=== PATIENT | male | born 1945 | race Hispanic/Latino ===

== ENCOUNTER 2025-03-04 11:42 | Inpatient (IN) | payer MEDICARE ==
[~2025-03-04] VITALS: Ht 177.8 cm; Wt 93.6 kg
--- NOTE | 2025-03-04 12:01 | EKG ---
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
[2025-03-04 12:07] LABS: IMMATURE GRANULOCYTE ABSOLUTE 0.04 K/uL (0-1); NUCLEATED RED BLOOD CELLS 0.0 % (0.0-0.19); PLATELET COUNT (AUTO) 162 K/uL (130-400); RED BLOOD CELL COUNT(AUTO) 4.52 MIL/uL (4.50-6.20); RED CELL DISTRIBUTION WIDTH 14.1 % (11.0-15.5); WHITE BLOOD COUNT (AUTO) 11.0 K/uL (4.8-10.8)
[2025-03-04 12:14] LABS: CREATININE 1.2 mg/dL (0.5-1.3); GLOMERULAR FILTR. RATE CALC 61.0 mL/min (>90); GLUCOSE,RANDOM 135.0 mg/dL (70-105); SODIUM SERUM 137.0 mmol/L (136-145); UREA NITROGEN, BLOOD 17.0 mg/dL (7-18)
--- NOTE | 2025-03-04 12:18 | ERN ---
General Chief Complaint: Syncope Stated Complaint: SYNCOPE Time Seen by MD: 11:48 History of Present Illness Initial Comments 80-year-old male, history of diabetes, hypertension, Hodgkin's lymphoma in remission, presents for syncopal episode. Patient reports he was sitting down. He felt very tired and weak. He yawned a few times. He then felt faint. Witnesses say he had a very brief syncopal episode without a fall. He has been in the hospital visiting another patient. He was taken to the ER, and on arrival here he has pale and diaphoretic, GCS 15, answering all questions appropriately. He improved over the 10 or so minutes that I spoke with the patient. His clinical exam is unremarkable. He denies any chest pains, shortness of breath, recent illness, vomiting, diarrhea, fevers or any other concerning symptoms. He reports that he has never had a syncopal episode. Allergies: Coded Allergies: iodine (Unverified Allergy, Unknown, 03/04/25) Past Medical History Past Medical History: Diabetes-Type II, Hypertension Past Surgical History: Cholecystectomy, Other Surgical History Other: BACK ROS Dictation CONSTITUTIONAL: No chills, no fever, no weakness, no diaphoresis, no malaise. HEAD/FACE: No signs of trauma. EENT: No eye pain, no blurred vision, no tearing, no double vision, no ear pain, no ear discharge, no nose pain, no nasal congestion, no throat pain, no throat swelling, no mouth pain. RESPIRATORY: No cough, no orthopnea, no SOB, no stridor, no wheezing. CARDIOVASCULAR: Syncope. GASTROINTESTINAL/ABDOMINAL: No abdominal pain, no constipation, no diarrhea, no nausea, no vomiting. GENITOURINARY: No abnormal discharge, no dysuria, no frequent urination, no hematuria. No complaints of pain in the genitals. MUSCULOSKELETAL: No back pain, no gout, no joint pain, no joint swelling, no muscle pain, no muscle stiffness, no neck pain. INTEGUMENTARY: No change in color, no change in hair/nails, no dryness, no lesion, no lumps, no rash. NEUROLOGICAL/PSYCH: No anxiety, not depressed, no emotional problem, no headac he, no numbness, no pre-existing deficit, no history of seizures, no tremors, no weakness. HEMATOLOGIC/LYMPHATIC: Not anemic, no history of blood clots, no apparent bleeding, no bruising, glands not swollen. All Systems Negative, Except as Noted. Physical Exam Physical Exam Dictation VITAL SIGNS: Reviewed. GENERAL APPEARANCE: Alert, oriented x3, no acute distress. HEAD AND FACE: Non-traumatic. EYES: PERRL, pink conjunctivas, eyelid no trauma, anterior chamber clear. EARS: Pinnas intact and no signs of trauma or erythema. Ear canals clear and no discharge. TMs no erythema. NOSE: No discharge, no bleeding. OROPHARYNX: Mouth normal, teeth no caries, tongue pink. Pharynx clear, no erythema. Tonsils no exudates, no abscesses noted. Mucous membrane moist. NECK: Supple, non-tender, no thyromegaly, no masses, no JVD, no bruits. BREAST: Deferred. CHEST: No tenderness, no crepitus, no paradoxical movement, no retractions. LUNGS: Clear, well-ventilated, symmetric, no rales, no wheezing, no rhonchi, no stridor, good breath sounds bilaterally. HEART: Regular rate, regular rhythm, no murmur, no gallops. VASCULAR: No peripheral edema. ABDOMEN: Soft, positive bowel sounds, nondistended, no guarding, nontender, no rebound, no masses no hepatomegaly, no splenomegaly, no Liao's sign, no hernias. RECTAL: Deferred. GENITAL: Deferred. NEUROLOGICAL: Normal speech, gross motor function intact, gross sensory function intact. MUSCULOSKELETAL: Neck nontender, full range of motion, back nontender, full range of motion. EXTREMITIES: Nontender, full range of motion. SKIN: Color pink, dry, no turgor, no rash, no lacerations, no abrasions, no contusions. LYMPHATICS: Deferred. Results Laboratory and Microbiology Lab and Micro Result Laboratory Tests Test 03/04/25 11:54 03/04/25 12:00 03/04/25 12:06 Whole Blood Glucose 119 MG/DL (70-110) H Bedside Glucose Comment Notified Nurse White Blood Count 11.0 K/uL (4.8-10.8) H Red Blood Count 4.52 MIL/uL (4.50-6.20) Hemoglobin 13.6 g/dL (14.0-18.0) L Hematocrit 39.6 % (42-54) L Mean Corpuscular Volume 87.6 fL (79-99) Mean Corpuscular Hemoglobin 30.1 pg (27.0-33.0) Mean Corpuscular Hemoglobin Concent 34.3 g/dL (32.0-36.0) Red Cell Distribution Width 14.1 % (11.0-15.5) Platelet Count 162 K/uL (130-400) Mean Platelet Volume 10.9 fL (7.5-10.5) H Immature Granulocyte % (Auto) 0.4 % (0-1) Neutrophils (%) (Auto) 67.1 % (40.0-77.0) Lymphocytes (%) (Auto) 20.1 % (21.0-51.0) L Monocytes (%) (Auto) 7.8 % (3.0-13.0) Eosinophils (%) (Auto) 3.8 % (0.0-8.0) Basophils (%) (Auto) 0.8 % (0.0-5.0) Neutrophils # (Auto) 7.4 K/uL (1.8-7.7) Lymphocytes # (Auto) 2.2 K/uL (1.0-4.8) Monocytes # (Auto) 0.9 K/uL (0.1-1.0) Eosinophils # (Auto) 0.42 K/uL (0.00-0.70) Basophils # (Auto) 0.09 K/uL (0.00-0.20) Absolute Immature Granulocyte (auto 0.04 K/uL (0-1) Nucleated Red Blood Cells 0.0 % (0.0-0.19) D-Dimer Quantitative (PE/DVT) 1129 ng/mL (0-500) *H Sodium Level 137 mmol/L (136-145) Potassium Level 3.8 mmol/L (3.5-5.1) Chloride Level 101 mmol/L (101-111) Carbon Dioxide Level 29 mmol/L (21-32) Blood Urea Nitrogen 17 mg/dL (7-18) Creatinine 1.2 mg/dL (0.5-1.3) Glomerular Filtration Rate Calc 61 mL/min (>90) Random Glucose 135 mg/dL (70-105) H Total Calcium 9.4 mg/dL (8.5-10.1) Total Creatine Kinase 51 U/L (21-232) Troponin I High Sensitivity 14.7 ng/L (4-75) 14 ng/L (4-75) MDM CC: Syncopal episode. Witnessed. Brief. Historian: Patient Comorbidities: Advanced age, diabetes, hypertension, history of Hodgkin's lymphoma in remission Differential diagnosis: Vasovagal syncope, arrhythmia, cardiac disease, embolism, dehydration, other EKG: Sinus rhythm, rate 56, normal axis, good R-wave progression, intervals are stable no STEMI. Independently interpreted by me. Labs: WBC 11 K no shift no bands. Hemoglobin 13.6. D-dimer elevated. Chemistries unremarkable. Troponin stable x2 CXR: Borderline cardiomegaly on the chest x-ray. No obvious focal infiltrates. Treatment in ED: 1 L lactated Ringer's. Due to the elevated D-dimer, I did consider a CT angiogram of the chest. He is unable to have a T to an allergy. We discussed keeping him on the telemetry and pulse ox, and considering a V/Q scan versus a echocardiogram and monitoring. Patient agrees to admission for syncope. ED Course Orders Procedure Category Date Status Time Cbc With Differential LAB 03/04/25 Complete 11:59 Cardiac Panel LAB 03/04/25 Complete 11:59 D-Dimer LAB 03/04/25 Complete 11:59 Type And Screen BBK 03/04/25 Complete 11:59 Chest 1vw RAD 03/04/25 Resulted 11:59 Ct Head/Brain W/O CT 03/04/25 Resulted Contrast 11:59 12 Lead Ekg Tracing- EKG 03/04/25 Complete Technical 11:59 0.9%Nacl 1000ml (Ns PHA 03/04/25 Complete 1000ml) 12:00 Basic Metabolic Panel LAB 03/04/25 Complete 11:59 Lactated Ringers PHA 03/04/25 Complete 1000ml (Lactated 12:00 Troponin I High LAB 03/04/25 Complete Sensitivity 12:55 Current Medications Medications (Trade) Dose Ordered Sig/Dylan Route PRN Reason Start Time Stop Time Status Last Admin Dose Admin Lactated Ringer's 1,000 ml @ 0 mls/hr ONCE ONCE IV 03/04/25 12:00 03/04/25 12:01 DC 03/04/25 12:21 Sodium Chloride 1,000 ml @ 0 mls/hr ONCE ONCE IV 03/04/25 12:00 03/04/25 12:01 DC Vital Signs Date Time Temp Pulse Resp B/P (MAP) Pulse Ox O2 Delivery O2 Flow Rate FiO2 03/04/25 12:32 54 17 109/66 96 Room Air* 0 21 03/04/25 11:43 96.4 21 16 66/41 DX & DISP Disposition: Inpatient Departure Impression: Primary Impression: Syncope Additional Impression: Elevated d-dimer Condition: Stable OZZY MUNSON DO Mar 04, 2025 12:18
[2025-03-04 12:19] LABS: CREATINE KINASE, TOTAL 51.0 U/L (21-232)
[2025-03-04] MEDS: LACTATED RINGERS 1000ML 1,000 ML IV ONE (12:21)
[2025-03-04] MEDS: 0.9%NACL 1000ML 1,000 ML IV ONE (12:22)
--- NOTE | 2025-03-04 13:13 | HMCIMG ---
EXAM: CT Head Without IV contrast. CLINICAL HISTORY: syncope TECHNIQUE: Axial computed tomography images of the head/brain without intravenous contrast. COMPARISON: None provided. FINDINGS: BRAIN: Bilateral periventricular and deep white matter hypodensity is seen, likely small vessel ischemic changes. No acute infarct or hemorrhage is identified. Faye-white matter differentiation is preserved. Generalized cerebral and cerebellar atrophy is noted. VENTRICLES: No hydrocephalus. ORBITS: The orbits are unremarkable. SINUSES AND MASTOIDS: The paranasal sinuses and mastoid air cells are clear. BONES: No fracture. SOFT TISSUES: Unremarkable. IMPRESSION: 1. No acute intracranial findings. 2. Chronic small vessel ischemic changes. 3. Generalized cerebral and cerebellar atrophy. /[place]
--- NOTE | 2025-03-04 13:49 | HMCIMG ---
EXAM: CR Chest, 1 View. CLINICAL HISTORY: SYNCOPE COMPARISON: None provided. FINDINGS: Right IJ central venous catheter projects over the SVC. Mild bibasilar airspace disease may reflect atelectasis. There is no pleural effusion or pneumothorax. There is mild cardiomegaly. Pulmonary vasculature is within normal limits. IMPRESSION: 1. Right IJ central venous catheter projecting over the SVC. 2. Mild bibasilar airspace disease, possibly atelectasis. 3. Mild cardiomegaly. 4. No acute cardiopulmonary findings. /[place]
--- NOTE | 2025-03-04 15:45 | HP ---
[facility] HISTORY AND PHYSICAL Date of Service: Mar 04, 2025 Time of Service: 15:45 HISTORY OF PRESENT ILLNESS: 80-year-old male with past medical history hypertension, hyperlipidemia, history of lymphoma presented to the hospital secondary to syncope. Patient currently was visiting one of his relatives in the hospital. He was sitting down and felt very tired and weak. He yawned a few times and then he was noted to pass out. The episode lasted for a few sec. Patient lost consciousness during the event and was unaware of his surroundings. No seizure-like activity was witnessed by the relatives. The patient denied any tongue bites, urinary incontinence, fecal incontinence. Patient denied any chest pain, shortness of breath, abdominal pain, nausea and vomiting during the event. Denied any upper or lower extremity weakness, paresthesias. Patient has a history of lymphoma and has finished chemotherapy. He is currently not on any treatment. He has been followed by Dr. Mcrae. Additionally has sees a associate creative director in [place]. He is on carvedilol 25 mg b.i.d. and enalapril 20 mg b.i.d. at home. Denied any dysuria, fever, chills, diarrhea, constipation, shortness for breath, cough, lower extremity swelling, shortness of breaths at exertion. He has been having to date at home and was going to see a dentist for tooth extraction. He is currently on amoxicillin at home. Labs were notable for white count of 11.0, hemoglobin was 13.6, platelet count was 162k, sodium was 137, potassium was 3.8, chloride was 101, creatinine is 1.2, glucose was 135 Patient underwent a chest x-ray which shows a chemo port in place. No infiltrates were noted. The patient underwent a CT head which showed no acute intracranial abnormalities. There was chronic small vessel ischemic changes noted REVIEW OF SYSTEMS CONSTITUTIONAL: Denies fevers, chills, or night sweats. No unintentional weight loss reported. NEUROLOGICAL: Denies headache, amaurosis fugax, motor weakness, sensory deficit, vertigo/spinning sensation, gait abnormalities, or tremors. Positive for syncope ENT: No hearing loss, otalgia, otorrhea, rhinitis, rhinorrhea, hoarseness, or sore throat. CARDIOVASCULAR: Denies any exertional angina, dyspnea on exertion, orthopnea, paroxysmal nocturnal dyspnea, palpitations, life-threatening arrhythmias, claudication. PULMONARY: Denies any shortness of breath, cough, phlegm/sputum, hemoptysis, pleuritic chest pain. GASTROINTESTINAL: Denies any type of dysphagia to either liquids or solids. Denies nausea, vomiting, pyrosis, early satiety, abdominal pain, diarrhea, constipation, or changes in stool consistency or caliber. Denies coffee-ground emesis, hematemesis, hematochezia, or melanotic stools. GENITOURINARY: Denies frequency, urgency, nocturia, hematuria or incontinence (Storage/Irritative symptoms.) Low urinary stream, straining to void, urinary intermittency or hesitancy, splitting of the voiding stream, terminal dribbling. ENDOCRINOLOGIC: Denies polyuria, polydipsia, polyphagia or heat/cold intolerances. HEMATOLOGIC: Denies thrombophilia/previous clots, or coagulopathy/bleeding disorders. ONCOLOGIC: Denies personal history of malignancy. DERMATOLOGIC: Denies rashes or pruritus. PSYCHIATRIC: Denies any suicidal or homicidal ideation. Denies hallucinations. PAST MEDICAL HISTORY: Hypertension, hyperlipidemia, history of Hodgkin's lymphoma PAST SURGICAL HISTORY: History of cholecystectomy PAST SOCIAL HISTORY: Denied any smoking, alcohol, drug use FAMILY HISTORY: Denied any pertinent family history Coded Allergies: iodine (Unverified Allergy, Unknown, 03/04/25) PHYSICAL EXAM GENERAL APPEARANCE: The patient is awake, alert, and oriented, in no acute cardiopulmonary distress. NEUROLOGICAL: Cranial nerves II-XII grossly intact. Motor is 5/5 in bilateral upper and lower extremities proximal to distal. No sensory deficits. HEENT: Face is symmetric. Pupils are equal and reactive. Extraocular movements are intact. NECK: Supple. No JVD. No thyromegaly. No submental, submandibular, pre- /postauricular, occipital or supraclavicular lymphadenopathy. CHEST: Normal chest expansion. No Telemetry. LUNGS: Absence of any rales, rhonchi or any wheezing. CARDIOVASCULAR: Regular. S1 and S2 normal. No appreciable rubs, murmurs or gallops. ABDOMEN: Soft, nontender, and nondistended. There is no rebound, voluntary guarding, or rigidity. : Deferred. No Diggs. EXTREMITIES: Non-edematous and not cyanotic. No clubbing. Good capillary refill. SKIN: No skin breakdown. Vital Sign (Last 24 Hours) 03/04/25 15:04 Temp 96.4 Pulse 56 Resp 16 B/P (MAP) 150/74 Pulse Ox 98 O2 Delivery Room Air* O2 Flow Rate 0 FiO2 21 LABS: Laboratory: Test 03/04/25 12:06 03/04/25 12:00 03/04/25 11:54 Range/Units Troponin I High Sensitivity 14 4-75 ng/L White Blood Count 11.0 H 4.8-10.8 K/uL Red Blood Count 4.52 4.50-6.20 MIL/uL Hemoglobin 13.6 L 14.0-18.0 g/dL Hematocrit 39.6 L 42-54 % Mean Corpuscular Volume 87.6 79-99 fL Mean Corpuscular Hemoglobin 30.1 27.0-33.0 pg Mean Corpuscular Hemoglobin Concent 34.3 32.0-36.0 g/dL Red Cell Distribution Width 14.1 11.0-15.5 % Platelet Count 162 130-400 K/uL Mean Platelet Volume 10.9 H 7.5-10.5 fL Immature Granulocyte % (Auto) 0.4 0-1 % Neutrophils (%) (Auto) 67.1 40.0-77.0 % Lymphocytes (%) (Auto) 20.1 L 21.0-51.0 % Monocytes (%) (Auto) 7.8 3.0-13.0 % Eosinophils (%) (Auto) 3.8 0.0-8.0 % Basophils (%) (Auto) 0.8 0.0-5.0 % Neutrophils # (Auto) 7.4 1.8-7.7 K/uL Lymphocytes # (Auto) 2.2 1.0-4.8 K/uL Monocytes # (Auto) 0.9 0.1-1.0 K/uL Eosinophils # (Auto) 0.42 0.00-0.70 K/uL Basophils # (Auto) 0.09 0.00-0.20 K/uL Absolute Immature Granulocyte (auto 0.04 0-1 K/uL Nucleated Red Blood Cells 0.0 0.0-0.19 % D-Dimer Quantitative (PE/DVT) 1129 *H 0-500 ng/mL Sodium Level 137 136-145 mmol/L Potassium Level 3.8 3.5-5.1 mmol/L Chloride Level 101 101-111 mmol/L Carbon Dioxide Level 29 21-32 mmol/L Blood Urea Nitrogen 17 7-18 mg/dL Creatinine 1.2 0.5-1.3 mg/dL Glomerular Filtration Rate Calc 61 >90 mL/min Random Glucose 135 H 70-105 mg/dL Total Calcium 9.4 8.5-10.1 mg/dL Total Creatine Kinase 51 21-232 U/L Whole Blood Glucose 119 H 70-110 MG/DL Bedside Glucose Comment Notified Nurse DIAGNOSTICS / RADIOLOGY: [ ] ASSESSMENT: Syncope POA Mild leukocytosis differential in setting of syncope versus infection Elevated D-dimer Periodontal disease Hypertension Hyperlipidemia History of Hodgkin's lymphoma Dehydration Iodine allergy PLAN: - patient to be admitted to medical-surgical unit with telemetry -in reference to syncope. Patient will be monitored on telemetry to monitor for any arrhythmia. Obtain echocardiogram. Obtain a carotid ultrasound. We will also obtain a Cardiology consultation. -in reference to elevated D-dimer. Patient currently denies any chest pain, shortness of breath, dyspnea on exertion. We will obtain a venous Doppler and we will obtain a V/Q scan since patient has iodine allergy -obtain patient's home medications will be reconciled once available -check orthostatic vital sign. -obtain a blood culture, urine culture. Patient will be started on Rocephin. Closely monitor for any fevers. If febrile we will expand coverage -check a TSH, A1c, procalcitonin, CRP -further orders per hospitalization course. Advanced Care Planning Which of the following were discussed: Hospice care: Yes __ No _x_ Therapeutic options: Yes __ No __ Advance directives: Yes __ No __ Other discussions: Discussed with who?: patient (Patient, family or surrogates) Voluntary nature of this service was explained to the patient? Yes _x_ No __ Amount of time spent: 25 minutes YAMILET De Oliveira MD, MD Mar 04, 2025 15:45
[2025-03-04] MEDS ORDERED: ATOR20TA65 PO (16:02)
[2025-03-04] MEDS ORDERED: METF-444 PO (16:02)
[2025-03-04] MEDS ORDERED: CLOP-31 PO (16:02)
[2025-03-04] MEDS ORDERED: ERGO500093 PO (16:02)
[2025-03-04] MEDS ORDERED: CARV25TA PO (16:02)
[2025-03-04] MEDS ORDERED: ENAL-91 PO (16:02)
[2025-03-04 16:14] LABS: APPEARANCE,URINE CLEAR (CLEAR); GLUCOSE, URINE (UA) NEGATIVE (NEGATIVE); NITRATE,URINE NEGATIVE (NEGATIVE); OCCULT BLOOD,URINE NEGATIVE (NEGATIVE)
[2025-03-04 16:16] LABS: ADD UA MICROSCOPIC YES
[2025-03-04 16:22] LABS: LEUKOCYTE ESTERASE ,URINE 25 Leu/uL (NEGATIVE)
[2025-03-04 17:07] LABS: SARS-CoV-2, RNA, NAAT NEGATIVE SARS CoV-2 (NEGATIVE)
--- NOTE | 2025-03-04 17:13 | HMCIMG ---
EXAM: US for Deep Venous Thrombosis, bilateral Lower Extremity. CLINICAL HISTORY: Leg Pain and Swelling TECHNIQUE: Real-time ultrasound scan of the veins of the bilateral lower extremity with color Doppler flow, spectral waveform analysis and compression. COMPARISON: None provided. FINDINGS: DEEP VEINS: The common femoral, superficial femoral, and popliteal veins are echolucent and compressible. There is normal color Doppler flow throughout. The visualized calf veins appear patent. SOFT TISSUES: No popliteal fossa cyst or other abnormalities. IMPRESSION: 1. No evidence of deep venous thrombosis in the bilateral lower extremities. /[place]
[2025-03-04 17:15] LABS: INFLUENZA TYPE A Negative For Type A (NEGATIVE); INFLUENZA TYPE B Negative For Type B (NEGATIVE)
--- NOTE | 2025-03-04 17:17 | NUR ---
DCP: HOME met with pt and his Ana Rosa Nayak [phone]. Couple here visiting a patient when he "passed out". Prior to admission, pt was independent, driving, uses cane to ambulate, has a walker, bsc, shower chair and CPAP. No HH or HD. Seen at [facility] by Dr Santana Aguirre for medical care and meds. Pt denies yoandy for SNF, wants to [place] at [place]. Addendum: 03/04/25 at 1720 by LINDSEY BOWERS Amended: Links added.
[2025-03-04] MEDS: 0.9%NACL 1000ML 1,000 ML IV SCH (17:36)
--- NOTE | 2025-03-04 17:41 | HMCIMG ---
EXAM: US Duplex Bilateral Carotid and Vertebral Arteries. CLINICAL HISTORY: SYNCOPE TECHNIQUE: Real-time ultrasound scan of the bilateral carotid and vertebral arteries, 2-D renae scale, with color Doppler flow and spectral waveform analysis. COMPARISON: None provided. FINDINGS: RIGHT COMMON CAROTID ARTERY: No occlusion or significant stenosis. RIGHT INTERNAL CAROTID ARTERY: No occlusion or significant stenosis. RIGHT EXTERNAL CAROTID ARTERY: No occlusion or significant stenosis. RIGHT VERTEBRAL ARTERY: Antegrade flow. RIGHT ICA/CCA RATIO: Within normal limits. LEFT COMMON CAROTID ARTERY: No occlusion or significant stenosis. LEFT INTERNAL CAROTID ARTERY: No occlusion or significant stenosis. LEFT EXTERNAL CAROTID ARTERY: No occlusion or significant stenosis. LEFT VERTEBRAL ARTERY: Antegrade flow. LEFT ICA/CCA RATIO: Within normal limits. SOFT TISSUES: No incidental abnormalities. IMPRESSION: 1. No significant stenosis or occlusion in the bilateral carotid or vertebral arteries. /[place]
--- NOTE | 2025-03-04 19:02 | NUR ---
ORTHO STATIC VITALS LAYING HR 54 BP 168/80 STANDING HR 67 BP 110/68 SITTING HR 53 BP 120/[address] VOSS.
[2025-03-04] MEDS: FAMOTIDINE 20MG VIAL IV SCH (21:22)
[2025-03-04] MEDS: LISINOPRIL 20 MG TABLET PO SCH (21:24)
[2025-03-04 22:30] VITALS: O2SAT 98
--- NOTE | 2025-03-04 22:33 | NUR ---
home meds i asked the patient for his home medications. his will bring them in the am to verify that they are correct in our system.
--- NOTE | 2025-03-04 22:41 | CONS ---
CONSULT NOTE: CARDIOLOGY Reason for consult: Syncope HPI/story at presentation: This is a pleasant 80-year-old male with past medical history who presented with a syncopal spell. Patient was visiting a family member in the hospital and was yawning and then subsequently, passed out while sitting. Cardiology was consulted for further evaluation management Subjective: No active cardiac complaints Past medical history: See below Allergies, Meds See chart Review of systems Review of Systems Constitutional: Negative for chills and fever. HENT: Negative for ear discharge and ear pain. Eyes: Negative for photophobia and discharge. Respiratory: Negative for cough, sputum production and stridor. Cardiovascular: Negative for chest pain and palpitations. Gastrointestinal: Negative for diarrhea and vomiting. Genitourinary: Negative for frequency. Musculoskeletal: Negative for myalgias. Skin: Negative for rash. Neurological: Negative for focal weakness and seizures. Endo/Heme/Allergies: Negative for polydipsia. Psychiatric/Behavioral: Negative for hallucinations. Vitals see chart PHYSICAL EXAMINATION GENERAL: The patient is alert and oriented*3 HEENT: Nonicteric sclerae, non traumatic HEART: Regular rate and rhythm with no murmurs LUNGS: Clear to auscultation bilaterally ABDOMEN: No acute issues, non tender GENITAL, RECTAL: deferred SKIN: No rash NEUROLOGIC: NFND EXTREMITIES: No edema ASSESSMENT SYNCOPE Associated with yawning Possible vasovagal syncope Orthostatic vitals were also positive, 02/2025 Echocardiogram pending HODGKIN'S LYMPHOMA HISTORY OF ALLERGY TO IODINE DIABETES, HYPERTENSION CORE MEASURES Not applicable OTHER MEDICAL PROBLEMS Reviewed PLAN 03/04/2025 possible history of syncope, agree with holding carvedilol given orthostatic positive as well, repeat orthostatics and echocardiogram the morning, further recommendations post. Seen and examined 03/04/2025 at around 10 PM. ATTESTATION I was involved substantially in the care of this patient Number and complexity of problems addressed: 1 acute illness with systemic features Amount and or complexity of data Review of prior external note(s) from each unique source: 2+ Ordering of each unique test : 1 Review of the result(s) of each unique test: 2+ Assessment requiring an independent historian(s): No Independent interpretation of test performed by another MD/QHCP/appropriate source (not separately reported) : No Discussion of management or test interpretation with external MD/QHCP/appropriate source (not separately reported) : No Risk status (cardiac, billing related): Moderate DOMINICK LION MD Mar 04, 2025 22:41
--- NOTE | 2025-03-04 23:00 | HMCIMG ---
EXAM: NM Lung Perfusion and Ventilation Scan. CLINICAL HISTORY: Rule out PE. aLLERGY TO IODINE DYE TECHNIQUE: Ventilation images of the lungs were obtained after inhalation of the radiopharmceutical. Then, radiolabeled MAA was administered intravenously and planar images of the lungs were obtained in multiple projections. COMPARISON: None provided. FINDINGS: VENTILATION: No segmental ventilation defect. PERFUSION: No segmental perfusion defect. IMPRESSION: Normal VQ scan based on modified PIOPED criteria. /[place]
[2025-03-05] VITALS (8 sets, daily range): BP systolic 113–179; BP diastolic 65–95; PULSE 48–62; RESP 16–18; TEMP 98–98.4; O2SAT 98–99
--- NOTE | 2025-03-05 03:02 | NUR ---
arrival report received by annie sarkar. patient arrived to room 416 at [address] I let [address] virk know about the consult. He came to see the patient. no new orders given. Plan of care discussed with the patient and he verbalized understanding. patient uses the cpap at home and will have his bring it today as well as his home medications. He is on oxygen 2 liters nasal cannula for now. He is not snoring tonight. He is ambulatory with assistance to the restroom. He has slept about 4 hours tonight. call light within reach, bed alarm on, 2 side rails up. will continue to monitor patient.
--- NOTE | 2025-03-05 03:08 | NUR ---
ortho vitals supine bp 179/84 standing 1 minute 154/95 standing 3 minutes 149/77 patient's heart rate remains in the 50[address] sinus st[address] dr. virk is aware of positive ortho vitals
[2025-03-05 06:42] LABS: CREATININE 0.9 mg/dL (0.5-1.3); GLOMERULAR FILTR. RATE CALC 86.0 mL/min (>90); GLUCOSE,RANDOM 84.0 mg/dL (70-105); SODIUM SERUM 139.0 mmol/L (136-145); UREA NITROGEN, BLOOD 13.0 mg/dL (7-18)
[2025-03-05 06:58] LABS: IMMATURE GRANULOCYTE ABSOLUTE 0.03 K/uL (0-1); NUCLEATED RED BLOOD CELLS 0.0 % (0.0-0.19); PLATELET COUNT (AUTO) 120 K/uL (130-400); RED BLOOD CELL COUNT(AUTO) 4.33 MIL/uL (4.50-6.20); RED CELL DISTRIBUTION WIDTH 13.7 % (11.0-15.5); WHITE BLOOD COUNT (AUTO) 8.9 K/uL (4.8-10.8)
[2025-03-05] MEDS ORDERED: LISINOPRIL 40 MG TABLET PO SCH (09:00)
[2025-03-05 09:26] LABS: % IRON SATURATION 21.3 % (30-44); IRON, SERUM 57.0 mcg/dL (65-175)
[2025-03-05] MEDS: ENOXAPARIN SODIUM 30 MG/0.3 ML SQ SCH (11:28)
--- NOTE | 2025-03-05 11:55 | PN ---
[facility] PROGRESS NOTE Date of Service: Mar 05, 2025 Time of Service: 11:51 SUBJECTIVE: 03/05 patient is seen and examined at bedside, case discussed with the RN, no acute events overnight, patient comfortably in bed, alert oriented x3, blood pressure 155/75, afebrile, saturating normal on room air. The patient remains bradycardic, heart rate of 56. Results of Doppler negative for DVT both lower extremities. V/Q scan normal. Ultrasound carotids, no significant stenosis or occlusion bilateral carotid or vertebral arteries. 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 Echocardiogram to evaluate ejection fraction, we will follow up. REVIEW OF SYSTEMS CONSTITUTIONAL: Denies fevers, chills, or night sweats. No unintentional weight loss reported. NEUROLOGICAL: Denies headache, amaurosis fugax, motor weakness, sensory deficit, vertigo/spinning sensation, gait abnormalities, or tremors. Positive for syncope ENT: No hearing loss, otalgia, otorrhea, rhinitis, rhinorrhea, hoarseness, or sore throat. CARDIOVASCULAR: Denies any exertional angina, dyspnea on exertion, orthopnea, paroxysmal nocturnal dyspnea, palpitations, life-threatening arrhythmias, claudication. PULMONARY: Denies any shortness of breath, cough, phlegm/sputum, hemoptysis, pleuritic chest pain. GASTROINTESTINAL: Denies any type of dysphagia to either liquids or solids. Denies nausea, vomiting, pyrosis, early satiety, abdominal pain, diarrhea, constipation, or changes in stool consistency or caliber. Denies coffee-ground emesis, hematemesis, hematochezia, or melanotic stools. GENITOURINARY: Denies frequency, urgency, nocturia, hematuria or incontinence (Storage/Irritative symptoms.) Low urinary stream, straining to void, urinary intermittency or hesitancy, splitting of the voiding stream, terminal dribbling. ENDOCRINOLOGIC: Denies polyuria, polydipsia, polyphagia or heat/cold intolerances. HEMATOLOGIC: Denies thrombophilia/previous clots, or coagulopathy/bleeding disorders. ONCOLOGIC: Denies personal history of malignancy. DERMATOLOGIC: Denies rashes or pruritus. PSYCHIATRIC: Denies any suicidal or homicidal ideation. Denies hallucinations. PHYSICAL EXAM GENERAL APPEARANCE: The patient is awake, alert, and oriented, in no acute cardiopulmonary distress. NEUROLOGICAL: Cranial nerves II-XII grossly intact. Motor is 5/5 in bilateral upper and lower extremities proximal to distal. No sensory deficits. HEENT: Face is symmetric. Pupils are equal and reactive. Extraocular movements are intact. NECK: Supple. No JVD. No thyromegaly. No submental, submandibular, pre- /postauricular, occipital or supraclavicular lymphadenopathy. CHEST: Normal chest expansion. No Telemetry. LUNGS: Absence of any rales, rhonchi or any wheezing. CARDIOVASCULAR: Regular. S1 and S2 normal. No appreciable rubs, murmurs or gallops. ABDOMEN: Soft, nontender, and nondistended. There is no rebound, voluntary guarding, or rigidity. : Deferred. No Diggs. EXTREMITIES: Non-edematous and not cyanotic. No clubbing. Good capillary refill. SKIN: No skin breakdown. Vital Signs (last 8hr) Date Time Temp Pulse Resp B/P (MAP) Pulse Ox O2 Delivery O2 Flow Rate FiO2 03/05/25 08:00 62 113/65 97 03/05/25 08:00 98.1 56 17 155/75 99 Room Air 03/05/25 08:00 56 136/67 97 03/05/25 04:00 98.1 50 18 165/72 99 Room Air LABS: Laboratory: Test 03/05/25 11:02 03/05/25 06:12 03/04/25 16:20 03/04/25 15:15 Range/Units Whole Blood Glucose 91 70-110 MG/DL White Blood Count 8.9 4.8-10.8 K/uL Red Blood Count 4.33 L 4.50-6.20 MIL/uL Hemoglobin 12.9 L 14.0-18.0 g/dL Hematocrit 37.5 L 42-54 % Mean Corpuscular Volume 86.6 79-99 fL Mean Corpuscular Hemoglobin 29.8 27.0-33.0 pg Mean Corpuscular Hemoglobin Concent 34.4 32.0-36.0 g/dL Red Cell Distribution Width 13.7 11.0-15.5 % Platelet Count 120 #L 130-400 K/uL Mean Platelet Volume 11.1 H 7.5-10.5 fL Immature Granulocyte % (Auto) 0.3 0-1 % Neutrophils (%) (Auto) 70.1 40.0-77.0 % Lymphocytes (%) (Auto) 17.5 L 21.0-51.0 % Monocytes (%) (Auto) 8.2 3.0-13.0 % Eosinophils (%) (Auto) 3.3 0.0-8.0 % Basophils (%) (Auto) 0.6 0.0-5.0 % Neutrophils # (Auto) 6.2 1.8-7.7 K/uL Lymphocytes # (Auto) 1.6 1.0-4.8 K/uL Monocytes # (Auto) 0.7 0.1-1.0 K/uL Eosinophils # (Auto) 0.29 0.00-0.70 K/uL Basophils # (Auto) 0.05 0.00-0.20 K/uL Absolute Immature Granulocyte (auto 0.03 0-1 K/uL Nucleated Red Blood Cells 0.0 0.0-0.19 % Sodium Level 139 136-145 mmol/L Potassium Level 3.5 3.5-5.1 mmol/L Chloride Level 105 101-111 mmol/L Carbon Dioxide Level 29 21-32 mmol/L Blood Urea Nitrogen 13 7-18 mg/dL Creatinine 0.9 0.5-1.3 mg/dL Glomerular Filtration Rate Calc 86 >90 mL/min Random Glucose 84 70-105 mg/dL Total Calcium 8.7 8.5-10.1 mg/dL Magnesium Level 1.70 L 1.80-2.40 mg/dL Iron Level 57 L 65-175 mcg/dL Total Iron Binding Capacity 267 250-450 mcg/dL Percent Iron Saturation 21.3 L 30-44 % Influenza Type A Antigen Negative For Type A NEGATIVE Influenza Type B Antigen Negative For Type B NEGATIVE SARS-CoV-2, RNA, NAAT NEGATIVE SARS CoV-2 NEGATIVE Urine Color LIGHT-YELLOW YELLOW Urine Appearance CLEAR CLEAR Urine pH 7.0 5.0-8.0 Urine Specific Rice 1.010 1.001-1.031 Urine Protein NEGATIVE NEGATIVE mg/dL Urine Glucose (UA) NEGATIVE NEGATIVE mg/dL Urine Ketones NEGATIVE NEGATIVE mg/dL Urine Occult Blood NEGATIVE NEGATIVE Urine Nitrate NEGATIVE NEGATIVE Urine Bilirubin NEGATIVE NEGATIVE mg/dL Urine Urobilinogen 0.2 0.2-1.0 mg/dL Urine Leukocyte Esterase 25 H NEGATIVE Callie/uL Urine RBC 2-5 H 0-1 /HPF Urine WBC 2-5 H 0-1 /HPF Urine Bacteria RARE None Seen /HPF Test 03/04/25 12:06 03/04/25 12:00 03/04/25 11:54 Range/Units Troponin I High Sensitivity 14 4-75 ng/L D-Dimer Quantitative (PE/DVT) 1129 *H 0-500 ng/mL Hemoglobin A1c 5.3 4.0-6.0 % Estimated Average Glucose (eAG) 105 70-126 mg/dL Total Creatine Kinase 51 21-232 U/L C-Reactive Protein, Quantitative 2.40 0.5-3.0 mg/L Procalcitonin < 0.05 L 0.05-0.5 ng/mL Thyroid Stimulating Hormone (TSH) 3.62 0.36-3.74 uIU/mL Bedside Glucose Comment Notified Nurse Current Medications Medications (Trade) Dose Ordered Sig/Dylan Route PRN Reason Start Time Stop Time Status Last Admin Dose Admin Acetaminophen (TYLenol 500MG TAB) 500 mg Q6H PRN PO MILD PAIN (1-3) 03/04/25 16:00 04/03/25 15:59 Atorvastatin Calcium (LIPItor 20MG) 20 mg HS PO 03/04/25 21:00 04/03/25 20:59 03/04/25 21:22 20 MG Carvedilol (Coreg 12.5MG) 12.5 mg BID PO 03/04/25 21:00 03/04/25 19:17 DC Ceftriaxone Sodium (ROCEphine 1G INJ) 1 gm Q24H IVPB 03/04/25 16:00 03/14/25 15:59 03/04/25 17:36 1 GM Clopidogrel Bisulfate (plaVIX 75MG) 75 mg DAILY PO 03/05/25 09:00 04/04/25 08:59 03/05/25 11:28 75 MG Enoxaparin Sodium (Lovenox) 30 mg DAILY SQ 03/05/25 09:00 04/04/25 08:59 03/05/25 11:28 30 MG Famotidine (Pepcid 20mg Vial) 20 mg BID IV 03/04/25 21:00 04/03/25 20:59 03/05/25 11:30 20 MG Lisinopril (Prinivil 20mg) 20 mg BID PO 03/04/25 21:00 04/03/25 20:59 03/05/25 11:28 20 MG Lisinopril (Prinivil 40mg) 40 mg DAILY PO 03/05/25 09:00 03/04/25 18:56 DC Sodium Chloride 1,000 ml @ 75 mls/hr [id number] IV 03/04/25 16:00 04/03/25 15:59 03/05/25 06:48 75 MLS/HR DIAGNOSTICS / RADIOLOGY: [ ] ASSESSMENT: Syncope POA Mild leukocytosis differential in setting of syncope versus infection Elevated D-dimer Periodontal disease Hypertension Hyperlipidemia History of Hodgkin's lymphoma Dehydration Iodine allergy PLAN: - patient remains admitted to the medical floor. -in reference to syncope. Patient will be monitored on telemetry to monitor for any arrhythmia. Obtain echocardiogram. Cardiology input noted and appreciated. Ultrasound carotids unremarkable. -in reference to elevated D-dimer. Patient currently denies any chest pain, shortness of breath, dyspnea on exertion. Extremities negative for DVT, V/Q scan no evidence of PE. -home medications reviewed and reconciled. -continue to check orthostatic vital sign. -follow results of septic workup, empiric Rocephin 1 g IV daily. -TSH, and hemoglobin A1c unremarkable. -further orders per hospitalization course. -follow a.m. labs Plan of action discussed, all questions answered, agreed and understood the information provided. MAGALIS CHACON MD Mar 05, 2025 11:55
[2025-03-05] MEDS: MAGNESIUM 2GM PREMIX 50ML 50 ML IV SCH (15:29)
[2025-03-05] MEDS: PoTASSium chloRIDE 20MEQ ER 20 MEQ ERTAB PO ONE ×2 (15:30→15:45)
--- NOTE | 2025-03-05 19:03 | HMCSR ---
APPROVED REPORT EXAM: Two-dimensional and M-mode echocardiogram with Doppler and color Doppler. INDICATION ICD: Syncope R55 2D Dimensions RVDd3.9 cmLVEF(%)47.9 (>50%)LA ESV INDEX (BP)36.16 mL/m2 IVSd1.3 (0.7-1.1cm)FS(%)24 % LVDd4.9 (3.8-5.6cm)LA (2D)3.9 (1.6-4.0cm) PWd0.9 (0.7-1.1cm)Ao Root(2D)3.2 (2.0-3.7cm) IVSs1.9 cmLVOT diam2.8 (1.8-2.4cm) LVDs3.7 (2.5-4.0cm) PWs1.5 cm Deformation Strain Apical 4-12.7 % Apical 2-17.1 % Apical 3-19.0 % Global Strain-16.2 % Aortic Valve AoV Vmax1.6 m/Nancy Peak GR9.6 mmHgLVOT Vmax0.7 m/s AoV VTI0.4 mAo Mean GR5.2 mmHgLVOT VTI0.19 m RAMBO (VMAX)2.83 cm2AVA (VTI) 3.2 cm2 Mitral Valve MV E Vmax85.1 cm/sDECEL Yoav871 ms MV A Vmax91.5 cm/sP 1/2 T63 ms E/A ratio0.9MVA (PHT)3.5 cm2 TDI E/E' Rgkysj45.3E/E' Hcaxwpy20.5 Medial E' Peak V3.36 cm/sLateral E' Peak V4.61 cm/s Pulmonary Valve PV Vmax0.8 m/sPV VTI0.18 mPV Mean GR1.3 mmHg PV Peak GR2.6 mmHgPI End Sidra. Hussain 58.3 cm/s Tricuspid Valve RAP (EST) 8 mmHgRVSP8.0 mmHg Left Ventricle The left ventricle is normal size. GLS -16.0% Moderate concentric left ventricular hypertrophy. LVEF is 45-50%. Grade 1 diastolic dysfunction Right Ventricle The right ventricle is normal size. The right ventricular systolic function is normal. Atria The left atrium is mildly dilated. The right atrium size is normal. 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 No aortic regurgit ation is present. There is no aortic valvular stenosis. Mitral Valve The mitral valve is normal in structure. There is trace of mitral valve regurgitation noted. There is no mitral valve stenosis. Tricuspid Valve The tricuspid valve is normal in structure. There is no tricuspid valve regurgitation noted. Pulmonic Valve The pulmonary valve is normal in structure. There is trace of pulmonic valvular regurgitation. Great Vessels The aortic root is normal in size. IVC is not well visualized. Pericardium There is no pericardial effusion. Other Information Quality : Technically difficult study dut to body habitus Conclusion LVEF is 45-50%. Grade 1 diastolic dysfunction Moderate concentric left ventricular hypertrophy. The left ventricle is normal size. GLS -16.0% The left atrium is mildly dilated. The right atrium size is normal. 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 There is no pericardial effusion. Normal pulmonary pressures Study quality was adequate
--- NOTE | 2025-03-05 21:36 | PN ---
CARDIOLOGY Reason for consult: Syncope HPI/story at presentation: This is a pleasant 80-year-old male with past medical history who presented with a syncopal spell. Patient was visiting a family member in the hospital and was yawning and then subsequently, passed out while sitting. Cardiology was consulted for further evaluation management Subjective: No active cardiac complaints Past medical history: See below Allergies, Meds See chart Review of systems Review of Systems Constitutional: Negative for chills and fever. HENT: Negative for ear discharge and ear pain. Eyes: Negative for photophobia and discharge. Respiratory: Negative for cough, sputum production and stridor. Cardiovascular: Negative for chest pain and palpitations. Gastrointestinal: Negative for diarrhea and vomiting. Genitourinary: Negative for frequency. Musculoskeletal: Negative for myalgias. Skin: Negative for rash. Neurological: Negative for focal weakness and seizures. Endo/Heme/Allergies: Negative for polydipsia. Psychiatric/Behavioral: Negative for hallucinations. Vitals see chart PHYSICAL EXAMINATION GENERAL: The patient is alert and oriented*3 HEENT: Nonicteric sclerae, non traumatic HEART: Regular rate and rhythm with no murmurs LUNGS: Clear to auscultation bilaterally ABDOMEN: No acute issues, non tender GENITAL, RECTAL: deferred SKIN: No rash NEUROLOGIC: NFND EXTREMITIES: No edema ASSESSMENT SYNCOPE Associated with yawning /Possible vasovagal syncope/ Orthostatic vitals were also positive, 02/2025 Echocardiogram pending HODGKIN'S LYMPHOMA HISTORY OF ALLERGY TO IODINE DIABETES, HYPERTENSION CORE MEASURES Not applicable OTHER MEDICAL PROBLEMS Reviewed PLAN 03/04/2025 possible history of syncope, agree with holding carvedilol given orthostatic positive as well, repeat orthostatics and echocardiogram the morning, further recommendations post. Seen and examined 03/04/2025 at around 10 PM. 03/05/2025 Echocardiogram with normal function, normal valvular gradients, however, possible right atrial mass of undetermined significance present. Will need a JOSS to further evaluate, patient willing to get this done tomorrow. Continues have issues with orthostatic vitals with drop in blood pressure. May consider IV fluids to help with this, EF is normal. Repeat orthostatics in the morning. Seen and examined [phone] at around 8 PM. ATTESTATION I was involved substantially in the care of this patient Number and complexity of problems addressed: 1 acute illness with systemic features Amount and or complexity of data Review of prior external note(s) from each unique source: 2+ Ordering of each unique test : 1 Review of the result(s) of each unique test: 2+ Assessment requiring an independent historian(s): No Independent interpretation of test performed by another MD/QHCP/appropriate source (not separately reported) : No Discussion of management or test interpretation with external MD/QHCP/appropriate source (not separately reported) : No Risk status (cardiac, billing related): Moderate Vitals/Labs Vital Signs Date Time Temp Pulse Resp B/P (MAP) Pulse Ox O2 Delivery O2 Flow Rate FiO2 03/05/25 20:00 98.1 48 18 128/67 97 Room Air 03/05/25 11:30 0 21 Laboratory Tests 03/05/25 06:12 Medications Current Medications Sodium Chloride 1,000 ml @ 0 mls/hr ONCE ONCE IV; Start 03/04/25 at 12:00; Stop 03/04/25 at 12:01; Status DC Lactated Ringer's 1,000 ml @ 0 mls/hr ONCE ONCE IV Last administered on 03/04/25at 12:21; Start 03/04/25 at 12:00; Stop 03/04/25 at 12:01; Status DC Famotidine 20 mg BID IV Last administered on 03/05/25at 20:02; Start 03/04/25 at 21:00; Stop 04/03/25 at 20:59 Acetaminophen 500 mg Q6H PRN PO; Start 03/04/25 at 16:00; Stop 04/03/25 at 15:59 Ceftriaxone Sodium 1 gm Q24H IVPB Last administered on 03/05/25at 17:46; Start 03/04/25 at 16:00; Stop 03/14/25 at 15:59 Sodium Chloride 1,000 ml @ 75 mls/hr [id number] IV Last administered on 03/05/25at 20:03; Start 03/04/25 at 16:00; Stop 04/03/25 at 15:59 Atorvastatin Calcium 20 mg HS PO Last administered on 03/05/25at 20:02; Start 03/04/25 at 21:00; Stop 04/03/25 at 20:59 Clopidogrel Bisulfate 75 mg DAILY PO Last administered on 03/05/25at 11:28; Start 03/05/25 at 09:00; Stop 04/04/25 at 08:59 Lisinopril 40 mg DAILY PO; Start 03/05/25 at 09:00; Stop 03/04/25 at 18:56; Status DC Enoxaparin Sodium 30 mg DAILY SQ Last administered on 03/05/25at 11:28; Start 03/05/25 at 09:00; Stop 04/04/25 at 08:59 Carvedilol 12.5 mg BID PO; Start 03/04/25 at 21:00; Stop 03/04/25 at 19:17; Status DC Lisinopril 20 mg BID PO Last administered on 03/05/25at 20:02; Start 03/04/25 at 21:00; Stop 04/03/25 at 20:59 Potassium Chloride 40 meq ONCE ONCE PO Last administered on 03/05/25at 15:30; Start 03/05/25 at 09:30; Stop 03/05/25 at 09:31; Status DC Magnesium Sulfate 50 ml @ 0 mls/hr PROTOCOL IV Last administered on 03/05/25at 15:29; Start 03/05/25 at 12:30; Stop 04/04/25 at 12:29 Potassium Chloride 40 meq ONCE ONCE PO; Start 03/05/25 at 15:30; Stop 03/05/25 at 15:31; Status DC DOMINICK LION MD Mar 05, 2025 21:35
[2025-03-06] VITALS (8 sets, daily range): BP systolic 100–165; BP diastolic 66–91; PULSE 50–80; RESP 17–18; TEMP 97.5–98.2; O2SAT 97
--- NOTE | 2025-03-06 08:00 | NUR ---
MEDICATIONS NOT GIVEN LOVENOX AND PLAVIX HELD. PATIENT PENDING JOSS WITH .
--- NOTE | 2025-03-06 08:50 | NUR ---
MEDICATION FOR JOSS CLARIFICATION SPOKE WITH DR. GROSS REGARDING MEDICATIONS FOR JOSS. PER MD ORDER PULL 4 OF VERSED, 100 FENTANYL AND LIDO SWISH. TO BE GIVEN ONLY DURING PROCEDURE. ORDERS PLACED.
--- NOTE | 2025-03-06 11:35 | PN ---
[facility] PROGRESS NOTE Date of Service: Mar 06, 2025 Time of Service: 11:33 SUBJECTIVE: 03/05 patient is seen and examined at bedside, case discussed with the RN, no acute events overnight, patient comfortably in bed, alert oriented x3, blood pressure 155/75, afebrile, saturating normal on room air. The patient remains bradycardic, heart rate of 56. Results of Doppler negative for DVT both lower extremities. V/Q scan normal. Ultrasound carotids, no significant stenosis or occlusion bilateral carotid or vertebral arteries. Patient already evaluated by dry box operator, agreed on holding Coreg. Echocardiogram to evaluate ejection fraction, we will follow up. 03/06 patient is seen and examined at bedside, case discussed with the RN, no acute events overnight, patient comfortably in bed, alert oriented x3, remains hemodynamically stable. Echocardiogram done 03/05/2025, LVEF 45/50%, grade 1 diastolic dysfunction, moderate concentric left ventricular hypertrophy, possible right atrial mass, maybe atypical of taking valve, prosthetic aortic valve present. Patient is scheduled for JOSS today by dry box operator, we will continue to follow up. REVIEW OF SYSTEMS CONSTITUTIONAL: Denies fevers, chills, or night sweats. No unintentional weight loss reported. NEUROLOGICAL: Denies headache, amaurosis fugax, motor weakness, sensory defici t, vertigo/spinning sensation, gait abnormalities, or tremors. Positive for syncope ENT: No hearing loss, otalgia, otorrhea, rhinitis, rhinorrhea, hoarseness, or sore throat. CARDIOVASCULAR: Denies any exertional angina, dyspnea on exertion, orthopnea, paroxysmal nocturnal dyspnea, palpitations, life-threatening arrhythmias, cla udication. PULMONARY: Denies any shortness of breath, cough, phlegm/sputum, hemoptysis, pleuritic chest pain. GASTROINTESTINAL: Denies any type of dysphagia to either liquids or solids. Denies nausea, vomiting, pyrosis, early satiety, abdominal pain, diarrhea, constipation, or changes in stool consistency or caliber. Denies coffee-ground emesis, hematemesis, hematochezia, or melanotic stools. GENITOURINARY: Denies frequency, urgency, nocturia, hematuria or incontinence (Storage/Irritative symptoms.) Low urinary stream, straining to void, urinary intermittency or hesitancy, splitting of the voiding stream, terminal dribbling. ENDOCRINOLOGIC: Denies polyuria, polydipsia, polyphagia or heat/cold intolerances. HEMATOLOGIC: Denies thrombophilia/previous clots, or coagulopathy/bleeding disorders. ONCOLOGIC: Denies personal history of malignancy. DERMATOLOGIC: Denies rashes or pruritus. PSYCHIATRIC: Denies any suicidal or homicidal ideation. Denies hallucinations. PHYSICAL EXAM GENERAL APPEARANCE: The patient is awake, alert, and oriented, in no acute cardiopulmonary distress. NEUROLOGICAL: Cranial nerves II-XII grossly intact. Motor is 5/5 in bilateral upper and lower extremities proximal to distal. No sensory deficits. HEENT: Face is symmetric. Pupils are equal and reactive. Extraocular movements are intact. NECK: Supple. No JVD. No thyromegaly. No submental, submandibular, pre- /postauricular, occipital or supraclavicular lymphadenopathy. CHEST: Normal chest expansion. No Telemetry. LUNGS: Absence of any rales, rhonchi or any wheezing. CARDIOVASCULAR: Regular. S1 and S2 normal. No appreciable rubs, murmurs or gallops. ABDOMEN: Soft, nontender, and nondistended. There is no rebound, voluntary guarding, or rigidity. : Deferred. No Diggs. EXTREMITIES: Non-edematous and not cyanotic. No clubbing. Good capillary refill. SKIN: No skin breakdown. Vital Signs (last 8hr) Date Time Temp Pulse Resp B/P (MAP) Pulse Ox O2 Delivery O2 Flow Rate FiO2 03/06/25 08:00 98.2 50 18 148/73 97 Room Air 03/06/25 05:30 54 18 144/78 100/71 119/79 03/06/25 03:50 97.5 55 18 140/77 96 Room Air LABS: Laboratory: Test 03/06/25 10:53 03/05/25 21:16 03/05/25 06:12 03/04/25 16:20 Range/Units Whole Blood Glucose 136 H 70-110 MG/DL Stool Occult Blood NEGATIVE NEGATIVE White Blood Count 8.9 4.8-10.8 K/uL Red Blood Count 4.33 L 4.50-6.20 MIL/uL Hemoglobin 12.9 L 14.0-18.0 g/dL Hematocrit 37.5 L 42-54 % Mean Corpuscular Volume 86.6 79-99 fL Mean Corpuscular Hemoglobin 29.8 27.0-33.0 pg Mean Corpuscular Hemoglobin Concent 34.4 32.0-36.0 g/dL Red Cell Distribution Width 13.7 11.0-15.5 % Platelet Count 120 #L 130-400 K/uL Mean Platelet Volume 11.1 H 7.5-10.5 fL Immature Granulocyte % (Auto) 0.3 0-1 % Neutrophils (%) (Auto) 70.1 40.0-77.0 % Lymphocytes (%) (Auto) 17.5 L 21.0-51.0 % Monocytes (%) (Auto) 8.2 3.0-13.0 % Eosinophils (%) (Auto) 3.3 0.0-8.0 % Basophils (%) (Auto) 0.6 0.0-5.0 % Neutrophils # (Auto) 6.2 1.8-7.7 K/uL Lymphocytes # (Auto) 1.6 1.0-4.8 K/uL Monocytes # (Auto) 0.7 0.1-1.0 K/uL Eosinophils # (Auto) 0.29 0.00-0.70 K/uL Basophils # (Auto) 0.05 0.00-0.20 K/uL Absolute Immature Granulocyte (auto 0.03 0-1 K/uL Nucleated Red Blood Cells 0.0 0.0-0.19 % Sodium Level 139 136-145 mmol/L Potassium Level 3.5 3.5-5.1 mmol/L Chloride Level 105 101-111 mmol/L Carbon Dioxide Level 29 21-32 mmol/L Blood Urea Nitrogen 13 7-18 mg/dL Creatinine 0.9 0.5-1.3 mg/dL Glomerular Filtration Rate Calc 86 >90 mL/min Random Glucose 84 70-105 mg/dL Total Calcium 8.7 8.5-10.1 mg/dL Magnesium Level 1.70 L 1.80-2.40 mg/dL Iron Level 57 L 65-175 mcg/dL Total Iron Binding Capacity 267 250-450 mcg/dL Percent Iron Saturation 21.3 L 30-44 % Influenza Type A Antigen Negative For Type A NEGATIVE Influenza Type B Antigen Negative For Type B NEGATIVE SARS-CoV-2, RNA, NAAT NEGATIVE SARS CoV-2 NEGATIVE Test 03/04/25 15:15 03/04/25 12:06 03/04/25 12:00 03/04/25 11:54 Range/Units Urine Color LIGHT-YELLOW YELLOW Urine Appearance CLEAR CLEAR Urine pH 7.0 5.0-8.0 Urine Specific Levan 1.010 1.001-1.031 Urine Protein NEGATIVE NEGATIVE mg/dL Urine Glucose (UA) NEGATIVE NEGATIVE mg/dL Urine Ketones NEGATIVE NEGATIVE mg/dL Urine Occult Blood NEGATIVE NEGATIVE Urine Nitrate NEGATIVE NEGATIVE Urine Bilirubin NEGATIVE NEGATIVE mg/dL Urine Urobilinogen 0.2 0.2-1.0 mg/dL Urine Leukocyte Esterase 25 H NEGATIVE Callie/uL Urine RBC 2-5 H 0-1 /HPF Urine WBC 2-5 H 0-1 /HPF Urine Bacteria RARE None Seen /HPF Troponin I High Sensitivity 14 4-75 ng/L D-Dimer Quantitative (PE/DVT) 1129 *H 0-500 ng/mL Hemoglobin A1c 5.3 4.0-6.0 % Estimated Average Glucose (eAG) 105 70-126 mg/dL Total Creatine Kinase 51 21-232 U/L C-Reactive Protein, Quantitative 2.40 0.5-3.0 mg/L Procalcitonin < 0.05 L 0.05-0.5 ng/mL Thyroid Stimulating Hormone (TSH) 3.62 0.36-3.74 uIU/mL Bedside Glucose Comment Notified Nurse Current Medications Medications (Trade) Dose Ordered Sig/Dylan Route PRN Reason Start Time Stop Time Status Last Admin Dose Admin Acetaminophen (TYLenol 500MG TAB) 500 mg Q6H PRN PO MILD PAIN (1-3) 03/04/25 16:00 04/03/25 15:59 Atorvastatin Calcium (LIPItor 20MG) 20 mg HS PO 03/04/25 21:00 04/03/25 20:59 03/05/25 20:02 20 MG Carvedilol (Coreg 12.5MG) 12.5 mg BID PO 03/04/25 21:00 03/04/25 19:17 DC Ceftriaxone Sodium (ROCEphine 1G INJ) 1 gm Q24H IVPB 03/04/25 16:00 03/14/25 15:59 03/05/25 17:46 1 GM Clopidogrel Bisulfate (plaVIX 75MG) 75 mg DAILY PO 03/05/25 09:00 04/04/25 08:59 03/05/25 11:28 75 MG Enoxaparin Sodium (Lovenox) 30 mg DAILY SQ 03/05/25 09:00 04/04/25 08:59 03/05/25 11:28 30 MG Famotidine (Pepcid 20mg Vial) 20 mg BID IV 03/04/25 21:00 04/03/25 20:59 03/06/25 09:51 20 MG Fentanyl Citrate (FENTanyl CITRate PF 50 MCG/ 1 ML 2ML VIAL) 100 mcg ONCE PRN IVP DURING JOSS 03/06/25 09:00 Lidocaine HCl (Lidocaine HCl 2% Viscous) 15 ml ONCE PRN PO DURING JOSS 03/06/25 09:00 Lisinopril (Prinivil 20mg) 20 mg BID PO 03/04/25 21:00 04/03/25 20:59 03/06/25 09:53 20 MG Lisinopril (Prinivil 40mg) 40 mg DAILY PO 03/05/25 09:00 03/04/25 18:56 DC Magnesium Sulfate 50 ml @ 0 mls/hr PROTOCOL IV 03/05/25 12:30 04/04/25 12:29 03/05/25 15:29 25 MLS/HR Midazolam HCl (Versed) 4 mg ONCE PRN IVP DURING JOSS 03/06/25 09:00 Sodium Chloride 1,000 ml @ 75 mls/hr [id number] IV 03/04/25 16:00 04/03/25 15:59 03/05/25 20:03 75 MLS/HR DIAGNOSTICS / RADIOLOGY: [ ] ASSESSMENT: Syncope POA Mild leukocytosis differential in setting of syncope versus infection Elevated D-dimer Periodontal disease Hypertension Hyperlipidemia History of Hodgkin's lymphoma Dehydration Iodine allergy PLAN: - patient remains admitted to the medical floor. -in reference to syncope. Patient will be monitored on telemetry to monitor for any arrhythmia. Cardiology input noted and appreciated. Plan for JOSS today. -in reference to elevated D-dimer. Patient currently denies any chest pain, shortness of breath, dyspnea on exertion. Doppler of the lower Extremities negative for DVT, V/Q scan no evidence of PE. -home medications reviewed and reconciled. -continue to check orthostatic vital sign. -afebrile, septic workup unremarkable, discontinue IV antibiotics. -TSH, and hemoglobin A1c unremarkable. -further orders per hospitalization course. -follow a.m. labs Plan of action discussed, all questions answered, agreed and understood the information provided. MAGALIS CHACON MD Mar 06, 2025 11:35
--- NOTE | 2025-03-06 13:11 | PN ---
CARDIOLOGY Reason for consult: Syncope HPI/story at presentation: This is a pleasant 80-year-old male with past medical history who presented with a syncopal spell. Patient was visiting a family member in the hospital and was yawning and then subsequently, passed out while sitting. Cardiology was consulted for further evaluation management Subjective: No active cardiac complaints Past medical history: See below Allergies, Meds See chart Review of systems Review of Systems Constitutional: Negative for chills and fever. HENT: Negative for ear discharge and ear pain. Eyes: Negative for photophobia and discharge. Respiratory: Negative for cough, sputum production and stridor. Cardiovascular: Negative for chest pain and palpitations. Gastrointestinal: Negative for diarrhea and vomiting. Genitourinary: Negative for frequency. Musculoskeletal: Negative for myalgias. Skin: Negative for rash. Neurological: Negative for focal weakness and seizures. Endo/Heme/Allergies: Negative for polydipsia. Psychiatric/Behavioral: Negative for hallucinations. Vitals see chart PHYSICAL EXAMINATION GENERAL: The patient is alert and oriented*3 HEENT: Nonicteric sclerae, non traumatic HEART: Regular rate and rhythm with no murmurs LUNGS: Clear to auscultation bilaterally ABDOMEN: No acute issues, non tender GENITAL, RECTAL: deferred SKIN: No rash NEUROLOGIC: NFND EXTREMITIES: No edema ASSESSMENT SYNCOPE Associated with yawning /Possible vasovagal syncope/ Orthostatic vitals were also positive, 02/2025 Echocardiogram pending HODGKIN'S LYMPHOMA HISTORY OF ALLERGY TO IODINE DIABETES, HYPERTENSION CORE MEASURES Not applicable OTHER MEDICAL PROBLEMS Reviewed PLAN 03/04/2025 possible history of syncope, agree with holding carvedilol given orthostatic positive as well, repeat orthostatics and echocardiogram the morning, further recommendations post. Seen and examined 03/04/2025 at around 10 PM. 03/05/2025 Echocardiogram with normal function, normal valvular gradients, however, possible right atrial mass of undetermined significance present. Will need a JOSS to further evaluate, patient willing to get this done tomorrow. Continues have issues with orthostatic vitals with drop in blood pressure. May consider IV fluids to help with this, EF is normal. Repeat orthostatics in the morning. Seen and examined [phone] at around 8 PM. JOSS completed today without any significant normalities except for a very calcified and enlarged station valve. Can likely discharge home if orthostatics remain negative. Seen and examined 03/06/2025 at around 1300. ATTESTATION I was involved substantially in the care of this patient Number and complexity of problems addressed: 1 acute illness with systemic features Amount and or complexity of data Review of prior external note(s) from each unique source: 2+ Ordering of each unique test : 1 Review of the result(s) of each unique test: 2+ Assessment requiring an independent historian(s): No Independent interpretation of test performed by another MD/QHCP/appropriate source (not separately reported) : No Discussion of management or test interpretation with external MD/QHCP/appropriate source (not separately reported) : No Risk status (cardiac, billing related): Moderate Vitals/Labs Vital Signs Date Time Temp Pulse Resp B/P (MAP) Pulse Ox O2 Delivery O2 Flow Rate FiO2 03/06/25 12:00 98.1 55 18 149/78 94 Room Air 03/05/25 20:05 0 21 Medications Current Medications Sodium Chloride 1,000 ml @ 0 mls/hr ONCE ONCE IV; Start 03/04/25 at 12:00; Stop 03/04/25 at 12:01; Status DC Lactated Ringer's 1,000 ml @ 0 mls/hr ONCE ONCE IV Last administered on 03/04/25at 12:21; Start 03/04/25 at 12:00; Stop 03/04/25 at 12:01; Status DC Famotidine 20 mg BID IV Last administered on 03/06/25at 09:51; Start 03/04/25 at 21:00; Stop 04/03/25 at 20:59 Acetaminophen 500 mg Q6H PRN PO; Start 03/04/25 at 16:00; Stop 04/03/25 at 15:59 Ceftriaxone Sodium 1 gm Q24H IVPB Last administered on 03/05/25at 17:46; Start 03/04/25 at 16:00; Stop 03/06/25 at 11:36; Status DC Sodium Chloride 1,000 ml @ 75 mls/hr [id number] IV Last administered on 03/05/25at 20:03; Start 03/04/25 at 16:00; Stop 04/03/25 at 15:59 Atorvastatin Calcium 20 mg HS PO Last administered on 03/05/25at 20:02; Start 03/04/25 at 21:00; Stop 04/03/25 at 20:59 Clopidogrel Bisulfate 75 mg DAILY PO Last administered on 03/05/25at 11:28; Start 03/05/25 at 09:00; Stop 04/04/25 at 08:59 Lisinopril 40 mg DAILY PO; Start 03/05/25 at 09:00; Stop 03/04/25 at 18:56; Status DC Enoxaparin Sodium 30 mg DAILY SQ Last administered on 03/05/25at 11:28; Start 03/05/25 at 09:00; Stop 04/04/25 at 08:59 Carvedilol 12.5 mg BID PO; Start 03/04/25 at 21:00; Stop 03/04/25 at 19:17; Status DC Lisinopril 20 mg BID PO Last administered on 03/06/25at 09:53; Start 03/04/25 at 21:00; Stop 04/03/25 at 20:59 Potassium Chloride 40 meq ONCE ONCE PO Last administered on 03/05/25at 15:30; Start 03/05/25 at 09:30; Stop 03/05/25 at 09:31; Status DC Magnesium Sulfate 50 ml @ 0 mls/hr PROTOCOL IV Last administered on 03/05/25at 15:29; Start 03/05/25 at 12:30; Stop 04/04/25 at 12:29 Potassium Chloride 40 meq ONCE ONCE PO; Start 03/05/25 at 15:30; Stop 03/05/25 at 15:31; Status DC Midazolam HCl 4 mg ONCE PRN IVP; Start 03/06/25 at 09:00 Fentanyl Citrate 100 mcg ONCE PRN IVP; Start 03/06/25 at 09:00 Lidocaine HCl 15 ml ONCE PRN PO; Start 03/06/25 at 09:00 DOMINICK LION MD Mar 06, 2025 13:11
[2025-03-06] MEDS: LIDOCAINE HCL 2% VISCOUS 15 ML UDCUP PO PRN (13:27)
[2025-03-06] MEDS: MIDAZOLAM HCL 1 MG/ML 2ML VIAL IVP PRN (13:27)
--- NOTE | 2025-03-06 15:14 | NUR ---
PATIENT UPDATE PER DR. GROSS PATIENT CAN BE DISCHARGED AFTER 5PM FROM HIS STANDPOINT. SPOKE WITH DR. CHACON WILL CONTINUE TO MONITOR PATIENT FOR ONE MORE NIGHT. PER MD START PATIENT ON LR 50 ML/HR AND CONTINUE WITH ORTHOSTATIC VITALS. POSSIBLE D/C TOMORROW 03/07.
--- NOTE | 2025-03-06 19:21 | NUR ---
IV FLUIDS NEW ORDER FOR LR GIVEN NS HELD
[2025-03-06] MEDS: LACTATED RINGERS 1000ML 1,000 ML IV SCH (20:25)
[2025-03-07 04:00] VITALS: BP 164/84; PULSE 56; RESP 18; TEMP 97.9
[2025-03-07 04:25] LABS: NUCLEATED RED BLOOD CELLS 0.0 % (0.0-0.19); PLATELET COUNT (AUTO) 111.0 K/uL (130-400); RED BLOOD CELL COUNT(AUTO) 4.24 MIL/uL (4.50-6.20); RED CELL DISTRIBUTION WIDTH 13.9 % (11.0-15.5); WHITE BLOOD COUNT (AUTO) 8.5 K/uL (4.8-10.8)
[2025-03-07 04:44] LABS: ASPARTATE AMINOTRANSFERASE 13.0 U/L (10-37); CREATININE 1.0 mg/dL (0.5-1.3); GLOMERULAR FILTR. RATE CALC 76.0 mL/min (>90); GLUCOSE,RANDOM 97.0 mg/dL (70-105); SODIUM SERUM 137.0 mmol/L (136-145); TOTAL PROTEIN, SERUM 6.0 g/dL (6.0-8.3); UREA NITROGEN, BLOOD 11.0 mg/dL (7-18)
[2025-03-07 07:59] VITALS: BP 156/78; PULSE 56; RESP 20; TEMP 97.6
[2025-03-07 08:00] VITALS: O2SAT 96
--- NOTE | 2025-03-07 08:30 | HMCSR ---
APPROVED REPORT EXAM: Transesophageal echocardiogram with color flow Doppler. INDICATION ICD: Rule out right atrial thrombus Reason For Test : Rule out Intracardiac Thrombus. PROCEDURE After obtaining informed consent, patient underwent transesophageal echo in the 416 15 mL 2% Viscous Lidocaine was given as a topical anesthetic prior to the administration of the consc ious sedation. Type of Sedation: please refer to medication administration record. Sedation was administered by please refer to medication administration record. . Sedation was achieved with please refer to medication administration record. intravenously. Transesophageal probe was inserted and advanced into esophagus without difficulty by Saige Jackson MD . JOSS was performed and images were obtained, probe was removed without complications. Throughout the procedure, the blood pressure, pulse oximetry, cardiac rhythm, and rate were monitored . Atria No left atrial appendage thrombus noted. No evidence of PFO/ASD by color Doppler. Prominent calcifi ed thickened eustachian valve visualized in right atrium. Aortic Valve The aortic valve is normal in structure. The prosthetic aortic valve is present. No paravalvular/gus valvular leak noted. Prosthetic valve opens well. No aortic regurgitation is present. There is no ao rtic valvular vegetation. There is no aortic valvular stenosis. Mitral Valve The mitral valve is normal in structure. There is trace of mitral valve regurgitation noted. No susan l valve vegetation. There is no mitral valve stenosis. Tricuspid Valve The tricuspid valve is normal in structure. There is no tricuspid valve regurgitation noted. No tricu spid valve vegetation. Pulmonic Valve The pulmonary valve is normal in structure. There is no pulmonic valvular regurgitation. Great Vessels The aortic root is normal in size. Ascending aorta appears normal in size. Descending aorta appears n ormal in size. Pericardium There is no pericardial effusion. Conclusion No left atrial appendage thrombus noted. Prominent calcified thickened eustachian valve visualized in right atrium. No evidence of PFO/ASD by color Doppler. The prosthetic aortic valve is present. No paravalvular/perivalvular leak noted. Prosthetic valve ope ns well. There is no aortic valvular vegetation.
[2025-03-07] MEDS ORDERED: LISI20TA24 PO (10:57)
--- NOTE | 2025-03-07 10:59 | DS ---
Discharge Summary Hospital Course Summary: The patient initially admitted to the hospital March 04, 2025 with the following history of the present in: 80-year-old male with past medical history hypertension, hyperlipidemia, history of lymphoma presented to the hospital secondary to syncope. Patient currently was visiting one of his relatives in the hospital. He was sitting down and felt very tired and weak. He yawned a few times and then he was noted to pass out. The episode lasted for a few sec. Patient lost consciousness during the event and was unaware of his surroundings. No seizure-like activity was witnessed by the relatives. The patient denied any tongue bites, urinary incontinence, fecal incontinence. Patient denied any chest pain, shortness of breath, abdominal pain, nausea and vomiting during the event. Denied any upper or lower extremity weakness, paresthesias. Patient has a history of lymphoma and has finished chemotherapy. He is currently not on any treatment. He has been followed by Dr. Mcrae. Additionally has sees a metal crafts teacher in [place]. He is on ca rvedilol 25 mg b.i.d. and enalapril 20 mg b.i.d. at home. Denied any dysuria, fever, chills, diarrhea, constipation, shortness for breath, cough, lower extremity swelling, shortness of breaths at exertion. He has been having to date at home and was going to see a dentist for tooth extraction. He is currently on amoxicillin at home. Labs were notable for white count of 11.0, hemoglobin was 13.6, platelet count was 162k, sodium was 137, potassium was 3.8, chloride was 101, creatinine is 1.2, glucose was 135 Patient underwent a chest x-ray which shows a chemo port in place. No infiltrates were noted. The patient underwent a CT head which showed no acute intracranial abnormalities. There was chronic small vessel ischemic changes noted Hospital course 03/05 patient is seen and examined at bedside, case discussed with the RN, no acute events overnight, patient comfortably in bed, alert oriented x3, blood pressure 155/75, afebrile, saturating normal on room air. The patient remains bradycardic, heart rate of 56. Results of Doppler negative for DVT both lower extremities. V/Q scan normal. Ultrasound carotids, no significant stenosis or occlusion bilateral carotid or vertebral arteries. Patient already evaluated by metal crafts teacher, agreed on holding Coreg. Echocardiogram to evaluate ejection fraction, we will follow up. 03/06 patient is seen and examined at bedside, case discussed with the RN, no acute events overnight, patient comfortably in bed, alert oriented x3, remains hemodynamically stable. Echocardiogram done 03/05/2025, LVEF 45/50%, grade 1 diastolic dysfunction, moderate concentric left ventricular hypertrophy, possible right atrial mass, maybe atypical of taking valve, prosthetic aortic valve present. Patient is scheduled for JOSS today by metal crafts teacher, we will continue to follow up. 03/07 patient is seen at bedside, case discussed with the RN, no acute events overnight, the patient underwent successful JOSS 03/06/2025, no significant abnormalities except for very calcified and enlarged aortic valve. Patient today is alert oriented x3, hemodynamically stable, afebrile, he is saturating normal on room air, he denies dizziness, no headache, no chest pain, no shortness a breath, no palpitation, no nausea, no vomiting. No orthostatic noted. Patient would like to be discharged home today. Textile Machine Operator(s): Cardiology service Procedure(s): Successful JOSS 03/06/2025 Assessment/Plan: Final diagnosis Syncope POA Mild leukocytosis differential in setting of syncope versus infection Elevated D-dimer Periodontal disease Hypertension Hyperlipidemia History of Hodgkin's lymphoma Dehydration Iodine allergy Discharge Instructions: The patient to be discharged home today, to follow up with PCP and Cardiology as an outpatient, return to the hospital if condition changes. Patient agreed and understood the information provided. Home Medications: Reported Medications Ergocalciferol (Vitamin D2) (Vitamin D2) 1,250 Mcg (27836 Unit) Capsule, 1250 MCG PO QWEEK, CAP 03/04/25 Enalapril Maleate (Enalapril Maleate) 20 Mg Tablet, 20 MG PO BID, TAB 03/04/25 Clopidogrel Bisulfate (Plavix) 75 Mg Tablet, 75 MG PO DAILY, TAB 03/04/25 Atorvastatin Calcium (Atorvastatin Calcium) 20 Mg Tablet, 20 MG PO HS, TAB 03/04/25 Carvedilol (Carvedilol) 25 Mg Tablet, 25 MG PO BID, TAB 03/04/25 Metformin HCl (Metformin HCl) 500 Mg Tablet, 500 MG PO BID, TAB 03/04/25 Time spent arranging discharge: 31-60 minutes MAGALIS CHACON MD Mar 07, 2025 10:59
[2025-03-07 12:00] VITALS: BP 152/82; PULSE 54; RESP 18; TEMP 97.9
[2025-03-07] MEDS: PoTASSium chloRIDE 20MEQ ER 20 MEQ ERTAB PO ONE (12:20)
--- NOTE | 2025-03-07 13:40 | NUR ---
PT sitting in bed w/ eyes open A&Ox4 able to make needs known, denies pain or discomfort, @ bedside. Discharge instructions given to PT and family verbally and written. Both verbally acknowledged understanding. I.V.s removed intact w/o complications. Pt escorted to POV via WC by COLORED LIQUID PLASTIC APPLIER w/o complications.
== END 2025-03-07 13:43 | disposition home or self-care (01) | DRG 641 ==
LOC: EDH 11:42 → EDHIP 15:40 → 4CH 22:25
PROVIDERS: ADMIT Internal Medicine; ATTEND Internal Medicine
PROC: 5A09357 Assistance with Respiratory Ventilation, Less than 24 Consecutive Hours, Continuous Positive Airway Pressure (ICD-10-PCS; principal; 2025-03-07)
DX: E86.0 Dehydration (principal); K05.6 Periodontal disease, unspecified; E11.9 Type 2 diabetes mellitus without complications; E78.5 Hyperlipidemia, unspecified; I11.9 Hypertensive heart disease without heart failure; Z90.49 Acquired absence of other specified parts of digestive tract; Z91.041 Radiographic dye allergy status; Z92.21 Personal history of antineoplastic chemotherapy; Z95.828 Presence of other vascular implants and grafts; Z85.71 Personal history of Hodgkin lymphoma
CPT/HCPCS: 36415; 70450; 71045; 78582; 80048; 80053; 81001; 82270; 82550; 82948; 83036; 83540; 83550; 83735; 84145; 84443; 84484; 85025; 85027; 85378; 86140; 86850; 86900; 86901; 87040; 87086; 87635; 87804; 93005; 93306; 93312; 93325; 93880; 93970; 96372; 99285; A9540; A9558; G0378; J0696; J1650; J2250; J3010; J3475; J3480; J7120; J1308